=== PATIENT | male | born 1965 | race Caucasian/White ===

== ENCOUNTER 2023-06-07 08:59 | Day surgery (SDC) | payer MEDICARE, OTHER ==
[2023-06-07] MEDS: LACTATED RINGERS 1,000 ML IV ONE (09:05)
--- NOTE | 2023-06-07 10:03 | ANESTHESIA ---
Pre-Anesthesia VS, & Labs - Diagnosis possible stricture/screening - Procedure EGD/COLONOSCOPY Vital Signs: Temp Pulse Resp BP Pulse Ox O2 Flow Rate 36.0 C L 55 L 18 129/80 99 06/07/23 09:05 06/07/23 09:05 06/07/23 09:05 06/07/23 09:05 06/07/23 09:05 Height: 5 ft 11 in Weight (kg): 88.4 kg Body Mass Index: 27.1 BMI Classification: Overweight - NPO Last Fluid Intake: 0600 Home Medications and Allergies Allergies/Adverse Reactions: Allergies Allergy/AdvReac Type Severity Reaction Status Date / Time No Known Drug Allergies Allergy Verified 06/07/23 09:46 Anes History & Medical History - Anesthetic History Anesthesia Complications: reports: No previous complications Family history of Anesthesia Complications: Denies - Medical History Cardiovascular: reports: None Pulmonary: reports: None Gastrointestinal: reports: None Urinary: reports: None Musculoskeletal: reports: None Endocrine/Autoimmune: reports: None Skin: reports: None Smoking Status: Never smoker Psychosocial: reports: Alcohol (OCCASIONAL) - Surgical History Eyes Ears Nose Throat (EENT): reports: Other Results - EKG Results EKG Comparison: Reviewed EKG Exam General: Alert Dental: WNL Mouth Openin Fingerbreadth Neck Mobility: Normal Mallampati classification: II Thyromental Distance: 4-6 cm Plan Anesthesia Type: Total IV Consent for Procedure(s) Verified and Reviewed: Yes Code Status: Attempt Resuscitation ASA classification: 1-Healthy patient Is this case an emergency?: No
[2023-06-07] MEDS ORDERED: PROPOFOL 500 MG/50 ML 500 MG/50 ML VIAL ONE (10:10)
[2023-06-07] MEDS ORDERED: LIDOCAINE-MPF 2% 5 ML VIAL ONE (10:54)
[2023-06-07] MEDS ORDERED: PROPOFOL 200 MG/20 ML VIAL IVP ONE ×2 (11:36→12:03)
[2023-06-07] MEDS ORDERED: GLYCOPYRROLATE 1 MG/5 ML VIAL ONE (11:54)
[2023-06-07] MEDS: LACTATED RINGERS 200 ML IV ONE ×2 (12:26→13:04)
--- NOTE | 2023-06-07 12:48 | ANESTHESIA POST OP EVALUATION ---
Anesthesia Post Eval - Post Anesthesia Eval Vitals: Last Vital Signs Temp 36.0 C L 06/07/23 12:47 Pulse 54 L 06/07/23 12:47 Resp 16 06/07/23 12:47 BP 116/73 06/07/23 12:47 Pulse Ox 99 06/07/23 12:47 O2 Flow Rate CV Function Including HR & BP: Stable Pain Control: Satisfactory Nausea & Vomiting: Negative Mental Status: Baseline Respiratory Status: Airway Patent Hydration Status: Satisfactory Anesthesia Complications: None
[2023-06-07 12:49] VITALS: BP 116/73; O2SAT 99
== END 2023-06-07 09:00 | disposition home or self-care (01) ==
LOC: SDS 08:59 → EDBD 08:59 → SDS 09:00
PROVIDERS: ATTEND Surgery
PROC: 0DB38ZX Excision of Lower Esophagus, Via Natural or Artificial Opening Endoscopic, Diagnostic (ICD-10-PCS; 2023-06-07)
PROC: 0DB78ZX Excision of Stomach, Pylorus, Via Natural or Artificial Opening Endoscopic, Diagnostic (ICD-10-PCS; 2023-06-07)
PROC: 0DB28ZX Excision of Middle Esophagus, Via Natural or Artificial Opening Endoscopic, Diagnostic (ICD-10-PCS; 2023-06-07)
PROC: 0DBK8ZZ Excision of Ascending Colon, Via Natural or Artificial Opening Endoscopic (ICD-10-PCS; principal; 2023-06-07 11:45)
PROC: 0DBM8ZZ Excision of Descending Colon, Via Natural or Artificial Opening Endoscopic (ICD-10-PCS; 2023-06-07 11:45)
DX: Z12.11 Encounter for screening for malignant neoplasm of colon (principal); D12.4 Benign neoplasm of descending colon; K57.30 Diverticulosis of large intestine without perforation or abscess without bleeding; K51.40 Inflammatory polyps of colon without complications; R13.10 Dysphagia, unspecified; K44.9 Diaphragmatic hernia without obstruction or gangrene; K22.2 Esophageal obstruction
CPT/HCPCS: 43239; 45380; 45385; J7120